=== PATIENT | male | born 1980 | race Hispanic/Latino ===

== ENCOUNTER 2019-03-07 18:49 | Emergency (ER) | payer OTHER ==
--- NOTE | 2019-03-07 19:21 | C.PDOC ---
History Of Present Illness 38 year old male with no ppmhx presents to the emergency department for evaluation of left-sided chest pain for the last 5 days. Patient describes the pain as intermittent, throbbing and stabbing. Pain is non-pleuritic in nature. Patient states that he has not taken any medications for it. Patient states that pain is associated with lightheadedness, but denies shortness of breath, vertigo, fall/trauma, venous stasis, orthopnea, leg swelling, and recent surgery. Patient denies history of blood clots or hormonal therapy. Patient reports being seen earlier today by [facility] and was sent here for evaluation. Time Seen by Provider: 03/07/19 19:21 Chief Complaint (Nursing): Chest Pain History Per: Patient History/Exam Limitations: no limitations Onset/Duration Of Symptoms: Days (5), Intermittent Episodes Current Symptoms Are (Timing): Still Present Quality: "Pain", Other (throbbing, stabbing) Associated Symptoms: denies: Dyspnea Past Medical History Reviewed: Historical Data, Nursing Documentation, Vital Signs Vital Signs: Last Vital Signs Temp 98.8 F 03/07/19 19:07 Pulse 90 03/07/19 19:07 Resp 20 03/07/19 19:07 BP 159/94 H 03/07/19 19:07 Pulse Ox 100 03/07/19 19:07 Primary Care Provider: FAMILY PROVIDER,NO - Medical History PMH: No Chronic Diseases Surgical History: No Surg Hx Family History: States: No Known Family Hx - Social History Hx Alcohol Use: Yes Hx Substance Use: No - Immunization History Hx Tetanus Toxoid Vaccination: No Hx Influenza Vaccination: No Hx Pneumococcal Vaccination: No Review Of Systems Constitutional: Negative for: Fever, Chills, Weakness, Malaise Eyes: Negative for: Pain, Vision Change, Other ENT: Negative for: Ear Pain, Ear Discharge, Nose Congestion Cardiovascular: Positive for: Chest Pain, Light Headedness. Negative for: Edema Respiratory: Negative for: Cough, Shortness of Breath, Other (orthopnea) Gastrointestinal: Negative for: Nausea, Vomiting, Abdominal Pain, Diarrhea, Constipation, Melena, Hematochezia, Hematemesis Genitourinary: Negative for: Dysuria, Frequency, Incontinence, Hematuria, Penile Discharge, Rash, Penile Pain Musculoskeletal: Negative for: Neck Pain, Shoulder Pain, Arm Pain, Back Pain, Hand Pain, Leg Pain Neurological: Negative for: Weakness, Numbness, Change in Speech, Altered Mental Status, Headache Psych: Negative for: Anxiety, Depression, Psychosis, Suicidal ideation, Withdrawal Physical Exam - Physical Exam Appears: Well, Non-toxic, No Acute Distress Skin: Normal Color, Warm, Dry Head: Atraumatic, Normacephalic Eye(s): bilateral: Normal Inspection, PERRL, EOMI Nose: Normal Oral Mucosa: Moist Throat: Normal, No Erythema, No Exudate Neck: Normal, Supple, Other (no meningeal signs) Lymphatic: No Adenopathy Chest: Symmetrical, No Tenderness Cardiovascular: Rhythm Regular, No Murmur, No JVD Respiratory: Normal Breath Sounds, No Rales, No Rhonchi, No Wheezing Gastrointestinal/Abdominal: Soft, No Tenderness, No Mass, No Distention, No Guarding, No Rebound Back: Normal Inspection, No CVA Tenderness, No Vertebral Tenderness Extremity: Normal ROM, No Swelling Extremity: Bilateral: Atraumatic Neurological/Psych: Oriented x3, Normal Speech, Normal Cognition, Normal Cranial Nerves, No Cerebellar Signs, Normal Motor Gait: Steady Other Neurological Findings: No Facial Palsy Extremity: Right: No Drift, Left: No Drift ED Course And Treatment - Laboratory Results Result Diagrams: 03/07/19 19:47 03/07/19 19:47 ECG: Interpreted By Me, Viewed By [facility] ECG Rhythm: Sinus Rhythm ECG Interpretation: Normal Interpretation Of ECG: Normal sinus rhythm at 80BPM, no STEMI. O2 Sat by Pulse Oximetry: 100 (RA) Pulse Ox Interpretation: Normal Medical Decision Making Medical Decision Makin38 year old male with no prior medical history presents to the emergency department for evaluation of left-sided chest pain for the last 5 days. No tearing chest pain nature / orthopnea / pnd of leg swelling / hemoptysis / malignancy hx. No chest pain to back. No recent nausea / vomiting episodes. Normal neuro exam. No abdominal pain. Exam fully unremarkable. Impression: Low-risk chest pain. Plan: EKG Chemistry CBC CXR NaCl IV Fluids Low Pretest, Wells' PERC out. Heart score: AGE: 1 RF: 0 Story: 1 EK Trop: pending EK, nsr, no stemi 2014 CXR unremarkable labs unremarkable pending trop 2016 trop unremarkable repeat neuro exam unremarkable, stable steady gait. no complaints of near sy ncope during eval pt endorses resolution of lightheadedness and remains cp free in ED clear for d/c home with return indications and f/u. Pt agreeable to plan. Disposition - Disposition Referrals: [facility] [Outside] [facility] [Outside] [facility] [Outside] Mick Ulloa MD [Staff Provider] - Alok Miller MD [Staff Provider] - Disposition: HOME/ ROUTINE Disposition Time: 20:40 Condition: STABLE Additional Instructions: ANABEL MANUEL, thank you for letting us take care of you today. Your provider was Deandre Palm and you were treated for CHEST PAIN. The emergency medical care you re ceived today was directed at your acute symptoms. If you were prescribed any medication, please fill it and take as directed. It may take several days for your symptoms to resolve. Return to the Emergency Department if your symptoms worsen, do not improve, or if you have any other problems. Please contact your doctor or call one of the physicians/clinics you have been referred to that are listed on the Patient Visit Information form that is included in your discharge packet. Bring any paperwork you were given at discharge with you along with any medications you are taking to your follow up visit. Our treatment cannot replace ongoing medical care by a primary care provider outside of the emergency department. Thank you for allowing the [facility] team to be part of your care today. If you had an X-Ray or CT scan: A Radiologist will review the ED reading if any change in treatment is needed we will contact you. If you had a blood, urine, or wound culture: It will take several days for the results, if any change in treatment is needed we will contact you. If you had an STI test: It will take 48 hours for the results. Please call after 1 week if you have not heard back. Instructions: Chest Pain (DC), Dizziness, Nonvertigo, (DC) Forms: [facility] (Swedish) - Clinical Impression Clinical Impression: Chest pain, Lightheaded - Scribe Statement The provider has reviewed the documentation as recorded by the Scribe (Dariel Ortizqvi) Provider Attestation: All medical record entries made by the Scribe were at my direction and personally dictated by me. I have reviewed the chart and agree that the record accurately reflects my personal performance of the history, physical exam, medical decision making, and the department course for this patient. I have also personally directed, reviewed, and agree with the discharge instructions and disposition.
[2019-03-07] MEDS ORDERED: Sodium Chloride 0.9% 1,000 ML IV ONE (19:28)
[2019-03-07 19:50] LABS: BASO % 0.4 % (0.0-2.0); EOS # 0.1 K/uL (0.0-0.7); EOS % 0.9 % (0.0-4.0); HEMOGLOBIN 14.9 g/dL (12.0-18.0); LYMPH # 1.4 K/uL (1.0-4.3); LYMPH % 13.5 % (20.0-40.0); MEAN CELL VOLUME 93.3 fL (80.0-94.0); MEAN CORPUSCULAR HEMOGLOBIN 32.7 pg (27.0-31.0); MEAN CORPUSCULAR HGB CONC 35.1 g/dL (33.0-37.0); MEAN PLATELET VOLUME 9.3 fL (7.2-11.7); MONO # 0.5 K/uL (0.0-0.8); MONO % 4.8 % (0.0-10.0); NEUT # 8.6 K/uL (1.8-7.0); NEUT % 80.4 % (50.0-75.0); NRBC % 0.1 % (0.0-2.0); RBC 4.54 Mil/uL (4.40-5.90); RED CELL DISTRIBUTION WIDTH 12.3 % (11.5-14.5); WHITE BLOOD COUNT 10.6 K/uL (4.8-10.8)
[2019-03-07 20:04] LABS: ALB/GLOB RATIO 1.5 (1.0-2.1); ALBUMIN 4.6 g/dL (3.5-5.0); ALT/SGPT 44 U/L (21-72); AST/SGOT 32 U/L (17-59); BLOOD UREA NITROGEN 11 mg/dL (9-20); CALCIUM 9.3 mg/dl (8.6-10.4); GFR NON-AFRICAN AMERICAN > 60
[2019-03-07 20:42] VITALS: BP 132/79; PULSE 79; RESP 13; TEMP 98.6
[2019-03-07 20:43] VITALS: O2SAT 100
--- NOTE | 2019-03-08 15:33 | RAD ---
Date of service: 03/07/2019 HISTORY: Chest pain COMPARISON: No prior. TECHNIQUE: Chest PA and lateral views FINDINGS: LUNGS: No active pulmonary disease. PLEURA: No significant pleural effusion identified. No pneumothorax apparent. Minor biapical pleural thickening. CARDIOVASCULAR: No aortic atherosclerotic calcification present. Normal cardiac size. No pulmonary vascular congestion. OSSEOUS STRUCTURES: No significant abnormalities. VISUALIZED UPPER ABDOMEN: Normal. OTHER FINDINGS: None. IMPRESSION: No active disease.
== END 2019-03-07 21:25 | disposition home or self-care (01) ==
LOC: C.ER 18:49 → MERGE 18:49 → C.ER 21:25
DX: R07.9 Chest pain, unspecified (principal); R42 Dizziness and giddiness
CPT/HCPCS: 71046; 80053; 84484; 85025; 96360; 99284; J7030